=== PATIENT | male | born 1960 | race Caucasian/White ===

== ENCOUNTER 2018-04-18 06:45 | Day surgery (SDC) | payer BC ==
[2018-04-18] MEDS ORDERED: Lactated Ringer's 500 ML IV ONE (08:48)
[2018-04-18] MEDS ORDERED: Propofol 10 mg/ml Inj (20 ML) ONE (08:48)
[2018-04-18 11:06] VITALS: BP 121/77; PULSE 65; RESP 12; TEMP 97.8; O2SAT 100
== END 2018-04-18 10:43 | disposition home or self-care (01) ==
LOC: C.ENDO 06:45
PROVIDERS: ATTEND Internal Medicine Gastroenterology
DX: Z12.11 Encounter for screening for malignant neoplasm of colon (principal); D12.5 Benign neoplasm of sigmoid colon; K64.8 Other hemorrhoids
CPT/HCPCS: 45385; 88305; J2704; J7120